=== PATIENT | female | born 1950 | race Caucasian/White ===

== ENCOUNTER 2023-12-13 09:53 | Day surgery (SDC) | payer MEDICARE, OTHER, SELFPAY ==
[2023-12-06 10:48] VITALS: BMI 26.6
[2023-12-13] VITALS (13 sets, daily range): BP systolic 116–174; BP diastolic 60–117; BMI 26.3
[2023-12-13 13:17] LABS: ACT-LR - POC 310 Seconds (116-155)
[2023-12-13 13:43] LABS: ACT-LR - POC 353 Seconds (116-155)
--- NOTE | 2023-12-13 15:21 | ITS.CL.ABL ---
[employer]er - Ablation
Ablation
Procedure Report:
ELECTROPHYSIOLOGY ABLATION STUDY
�
DATE:: December 13, 2023�����������������������������REFERRING: Dr. Hill
�
INDICATION: Persistent atrial flutter which is atypical
�
HISTORY: See H and P.��Prior history notable for pulmonary vein isolation and CTI flutter ablation. Flutter wave is positive into 3F in the precordium
�
ANTIARRHYTHMIC DRUG: No current antiarrhythmic drug therapy
�
PRE-PROCEDURE DOTTY: No atrial thrombus
�
PRESENTING RHYTHM: Atrial flutter which is atypical and as below determined to be left atrial posterior wall flutter at 230 ms
�
'TIME-OUT':��called and confirmed.
�
SEDATION/ANESTHESIA:��provided via the anesthesia department using general anesthesia (LMA).
�
INTRAVENOUS/ARTERIAL ACCESS:
Right femoral venous -9 South African
Left femoral venous -10 Fr, 6 Fr with the 10 [place] African sheath upgraded to a 10 [place] African long Brite tip sheath
Ultrasound guidance for bilateral femoral vein access was utilized by me to obtain access with demonstration of normal anatomy
CHADS-VASC Score:
[id number] suture was utilized
HAS-Bled Score
�
PROCEDURE:
1.��A decapolar CS catheter was placed within the CS for mapping and pacing.��This was also used as the reference catheter for the 3-D map. A multipolar grid catheter was brought up to the right atrium demonstrating activation mapping consistent
with breakthrough from the left atrium. Entrainment from the CTI, SVC, and lateral RA were PPI greater than 100 ms greater than tachycardia cycle length. As such we performed transseptal puncture with the [address] sheath with the RF
wire under ultrasound guidance. Once the left atrium was accessed multipolar grid catheter demonstrated with entrainment and activation mapping that the patient had left atrial posterior wall flutter. The proximal and distal coronary sinus were
out of the circuit with PPI greater than tachycardia cycle length of 80 ms and PPI equal to tachycardia cycle length from the left atrial posterior wall and roof. As below the pulmonary veins were isolated at baseline and a wide havasupai fashion. A
single flower post delivery to the posterior wall transitioned tachycardia to 320 ms and was now out from the posterior wall. The tachycardia which is tachycardia #2 320 ms was now in from the proximal and distal coronary sinus activating the
mitral annulus in a counterclockwise fashion. On the second lesion delivered in the mitral isthmus the tachycardia terminated to sinus rhythm. 100 mics of nitroglycerin were given in the left atrial sheath prior to delivery on the mitral isthmus.
The remainder of the posterior wall was isolated and additional lesions were given on the mitral isthmus. A total of 52 lesions were given to the posterior wall mitral isthmus with lesions in the basket and all of post given to the left pulmonary
veins as an anchor. The multipolar grid catheter then determined entrance and exit block in all 4 pulmonary veins and the left atrial posterior wall. There was also initial block across the mitral isthmus at 140 ms but the mitral line reconnected
after approximately 5 minutes. Additional lesions were then given in the mid isthmus between the left inferior pulmonary vein and the mitral annulus which brought about persistent bidirectional block with wide split doubles 145 ms time across the
isthmus. We were able to interrogate electrograms in the left atrial appendage did demonstrate that there was not electrical isolation of the left atrial appendage.
2. The intracardiac ultrasound catheter was positioned in the RA to identify the FO for targeting of transseptal puncture, assist��in identification of the pulmonary vein ostia, monitoring pre and post ablation pulmonary vein flow velocities,
monitoring for 'bubble' formation during RF application as a sign of thermal injury,��and to monitor for pericardial effusion during mapping and ablation procedure.���Left atrial size, LV ejection fraction, and pulmonary vein flows were monitored
pre and post ablation procedure. The other valves were inspected and found to be free of significant regurgitation or stenosis.
�
3.��Half of the calculated heparin bolus was administered prior to the first transeptal puncture.��Transseptal puncture was performed to diagnose RA and LA pressure so that safety of LA mapping and ablation could be further assessed, and to access
the left atrium and pulmonary veins for mapping and ablation.��This entailed advancing an 18 [place] sheath and RF wire apparatus and withdrawing both (monitoring intracardiac ultrasound, fluoroscopy and tip pressure) with the tip oriented toward the
atrial septum.��The fossa ovalis was engaged (indicated by sudden displacement of the sheath tip as well as tenting of the fossa seen on intracardiac ultrasound).��Left atrial access required a pass with the Brock[place]rough needle extended.��Left
atrial catheter position was confirmed by pressure monitoring (RA mean pressure 8 mm Hg and LA mean pressure 14 mm Hg), LA saturation (99%),��as well as fluoroscopy.��The sheath was advanced over the dilator and positioned in the left atrium.��This
procedure was repeated for the Agilis sheath.��The remainder of the calculated heparin bolus was administered and heparin was
infused to maintain ACT at 300 -350 seconds throughout the case.
�
4.��RA pacing was performed via the proximal decapolar poles and LA pacing was performed via the distal decapolar poles.
�
5. A quadrapolar catheter was first positioned at the His position for His Bundle recording which was tagged via the 3-D Navex sytem, and then passed to the RVA for RV pacing and recording.
�
6. The multipolar catheter and the PFA catheter were placed in each of the LIPV, LSPV, RSPV and the RIPV.��
�
7.��Next, a 3-D map was created using Navex.���A 3-D reconstructed CT image was compared to the 3-D Navex map to assist in anatomic interpretation, mapping and ablation.��The CT image and the NavX image were fused.
�
8. 52 lesions were given to the antra of the left pulmonary veins, the left atrial posterior wall, and the mitral isthmus from the mitral annulus up towards the left inferior pulmonary vein and the lateral aspect. 100 mcg of nitroglycerin were
given through the left atrial sheath preablation in the mitral isthmus. As above the atrial flutter transition from posterior wall flutter to mitral flutter with the first lesion in flat repose in the posterior wall and terminated with flutter post
at the mitral isthmus on the second delivery lesion. Additional lesions were given to bring about block and left posterior wall from the roof down to the floor and there was bidirectional block persistently across the mitral isthmus at 145 ms.
Intracardiac ultrasound was utilized for direct facilitation of contact and no grade 3 bubble formations were seen.
�
9. Normal sinus node and AV sara function were noted.
�
TOTAL FLOURO TIME: 21 minutes 163 mGy
�
TOTAL RF DURATION: 0 minutes
�
REVERSAL OF HEPARIN: 35 mg of protamine, slow IV administration
�
COMPLICATIONS:
None
Intracardiac US shows no pericardial effusion post ablation.
�
SUMMARY:��
Complex left atrial mapping and ablation.
Clinical left atrial posterior wall flutter to 30 ms transition to 320 ms counterclockwise mitral flutter which terminated with ablation with the PFA catheter. Isolation of left atrial posterior wall and the mitral isthmus bidirectional block as
above. The pulmonary veins were isolated at baseline but lesions were given to the antral region of the pulmonary veins. The chronic CTI flutter ablation had persistent bidirectional block.
�
RECOMMENDATIONS:
1. Admit to monitored bed.��
2. Resume anticoagulation
3.��Ambulate out of bed 4 hours
4.��Dofetilide loading if she has any clinical recurrences
�
Copy to: Dr. Hill
�
[2023-12-13] MEDS: ANESTHETIC LOZENGE 1 LOZENGE PO (18:05)
--- NOTE | 2023-12-13 18:44 | PTCARENOTE ---
Rec'd Pt A,A+O, bilat femoral dsgs D+I, palp DP pulses. denies pain.
[2023-12-13] MEDS: LIPITOR 20 MG PO (18:55)
[2023-12-13] MEDS: TOPROL XL 25 MG PO (20:01)
[2023-12-13] MEDS: ELIQUIS 5 MG PO (20:01)
[2023-12-13] MEDS: ALPHAGAN 0.2% EYE DROPS 1 DROP BOTH EYES (20:02)
[2023-12-13] MEDS: XALATAN OPHTHALMIC SOLUTION 1 DROP BOTH EYES (21:57)
[2023-12-13] MEDS: LEXAPRO 10 MG PO (21:57)
[2023-12-14 04:23] VITALS: BP 145/73
[2023-12-14 05:29] LABS: Hematocrit 35.7 % (37.0-47.0); Hemoglobin 12.1 g/dL (12.0-16.0); Mean Corp Hgb Conc. 33.9 g/dL (33.0-37.0); Mean Corpuscular Hgb 31.6 pg (27.0-31.0); Mean Corpuscular Volume 93.2 fL (81.0-99.0); Mean Platelet Volume 10.3 fL (7.4-10.4); Platelet Count 279 10^3/uL (130-400); Red Blood Cell Count 3.83 10^6/uL (4.20-5.40); White Blood Cell Count 11.5 10^3/uL (4.8-10.8)
[2023-12-14 05:42] LABS: Blood Urea Nitrogen 21 mg/dl (7-17); Calcium 9.4 mg/dl (8.4-10.2); Carbon Dioxide 22 mmol/L (22-30); Chloride 106 mmol/L (98-107); Estimated Creatinine Clearance 59 ml/min; Glucose 127 mg/dl (70-99); Magnesium 2.2 mg/dl (1.6-2.3); Potassium 5.2 mmol/L (3.5-5.1); Sodium 139 mmol/L (135-145); eGFR > 60.00
[2023-12-14 07:28] VITALS: BP 154/90
--- NOTE | 2023-12-14 07:43 | PTCARENOTE ---
Patient received from previous shift resting in bed, AAO X 3, denies pain. NSR via cm, SaO2 @ 100% on RA. B/L groin sites cdi, no ecchymosis or hematoma noted, distal pulses palp. Assisted oob to bathroom, large void, am care performed
independently. Settled to chair, breakfast ordered. Patient updated to plan of care for the day, in agreement. See work list for full assessment and interventions performed.
[2023-12-14] MEDS: ELIQUIS 5 MG PO (08:22)
[2023-12-14] MEDS: ALPHAGAN 0.2% EYE DROPS 1 DROP BOTH EYES (08:23)
[2023-12-14] MEDS: TOPROL XL 25 MG PO (08:23)
[2023-12-14] MEDS: FLUAD (65 yr+) 2024-2025 FORMULA 0.5 ML IM (10:51)
[2023-12-14 10:53] VITALS: BP 136/63
--- NOTE | 2023-12-14 11:19 | W.PN.CARDCBS ---
Today's Communication / Plan
-
decrease metoprolol to 25mg BID
home today
Impression / Plan
-
PCP: Luna Early MD
CDY: Yogi Hill MD
73 y/o, PMH sig for AFib/Flutter with prior PVI/CTI RFA in 2010 and again in 2019. PResents with recurrent symptomatic AFlutter.
[id number], maintained on eliquis.
IMPRESSION:
AFib/Flutter, prior PVI/CTI RFA (2010, 2018)
Recurrent symptomatic AFlutter
s/p LAPW/mitral flutter PFA w/antral pulm vein PFA, 12/13/23
HTN
HLD
PAUL
PLAN:
Tele- NSR
Groin sites stable
OOB ambulating
resume eliquis
decrease metoprolol to 25mg bid
followup w/Dr. Hill as scheduled
homd today
Complex left atrial mapping and ablation.
Clinical left atrial posterior wall flutter to 30 ms transition to 320 ms counterclockwise mitral flutter which terminated with ablation with the PFA catheter. Isolation of left atrial posterior wall and the mitral isthmus bidirectional block as
above. The pulmonary veins were isolated at baseline but lesions were given to the antral region of the pulmonary veins. The chronic CTI flutter ablation had persistent bidirectional block.
Progress Note - Journeyman Carpenter
Subjective
Date of Service: December 14, 2023
Denies cp/palps/dyspnea
oob ambulating
groin sites without ht/bleeding
Objective
Labs:
12/14/23 04:42
12/14/23 04:42
Labs
Hgb 12.1 g/dL (12.0-16.0) 12/14/23 04:42
Hct 35.7 % (37.0-47.0) L 12/14/23 04:42
Plt Count 279 10^3/uL (130-400) 12/14/23 04:42
Sodium 139 mmol/L (135-145) 12/14/23 04:42
Potassium 5.2 mmol/L (3.5-5.1) H 12/14/23 04:42
BUN 21 mg/dl (7-17) H 12/14/23 04:42
Creatinine 0.8 mg/dL (0.6-1.0) 12/14/23 04:42
Glucose 127 mg/dl (70-99) H 12/14/23 04:42
Vital Signs and I&O:
Vital Signs
Temp Pulse Resp BP Pulse Ox
98.2 F 65 17 136/63 100
12/14/23 11:00 12/14/23 11:00 12/14/23 11:00 12/14/23 10:53 12/14/23 11:00
Vital Signs
Temp Pulse Resp BP Pulse Ox
98.2 F 65 17 136/63 100
12/14/23 11:00 12/14/23 11:00 12/14/23 11:00 12/14/23 10:53 12/14/23 11:00
Intake & Output
12/12/23 12/13/23 12/14/23 12/15/23
06:59 06:59 06:59 06:59
Intake Total 2110 / 2110 250 / 250
Output Total 600 / 600
Balance 1510 / 1510 250 / 250
Physical Exam
Physical Exam
AAOx3, MAEE 5/5
RRR S1 S2 no murmurs
CTA bilat, non labored
bilat groin sites with no ht/bleeding, non tender
bilat extremities w/palpable distal pulses, no edema
--- NOTE | 2023-12-14 11:33 | PTCARENOTE ---
Discharge instructions thoroughly reviewed w/patient and spouse, all questions answered. PIV removed. Patient and all belongings transported to waiting vehicle for d/c home to private residence.
--- NOTE | 2023-12-14 11:45 | W.DS.TRANS ---
DC Summary - Clinical Education Manager
-
Discharge Instructions:
Discharge Diagnosis/Procedures Atrial flutter post ablation
Diet Low Cholesterol
Driving Restrictions No driving for 24 hours
Instructions:
Stand-Alone Forms: DC Instructions- Cath/EP Lab
Changes to Home Medications: Yes
Discharge Medications:
DC Medications w/original date entered in [facility]
apixaban 5 mg tablet (Eliquis) 5 mg PO BID 02/01/19
atorvastatin 20 mg tablet 20 mg PO QPM 02/01/19
bimatoprost 0.01 % eye drops (Lumigan) 1 drp BOTH EYES HS 02/01/19
biotin 1,000 mcg chewable tablet 5,000 mcg PO DAILY 02/01/19
brimonidine 0.2 % eye drops 1 drp BOTH EYES BID 02/01/19
cholecalciferol (vitamin D3) 25 mcg (1,000 unit) tablet 1,000 units PO DAILY 02/01/19
coenzyme N52-[id number] E 100 mg-5 unit capsule (Co Q-10 (with Vit E)) 1 ea PO DAILY 02/01/19
dorzolamide (PF) 2 % (PF) eye drops 1 ml BOTH EYES BID 02/01/19
cranberry 1 cap PO DAILY 11/30/23
metoprolol succinate 25 mg tablet,extended release 24 hr 25 mg PO QPM 11/30/23
calcium 600 mg capsule 600 mg PO BID 12/13/23
escitalopram oxalate 10 mg tablet 10 mg PO HS 12/13/23
famotidine 20 mg tablet (Pepcid) 20 mg PO DAILY 12/13/23
omega-3 fatty acids 565 mg PO DAILY 12/13/23
metoprolol succinate 25 mg tablet,extended release 24 hr 25 mg PO BID #0 tabs 12/14/23
Home Medication Changes
DOSE DECREASE: metoprolol xl
Pending Results: No
--- NOTE | 2023-12-14 12:03 | CM ---
CM following for DC planning needs.
Met w/ patient at bedside as she was preparing for DC.
Prior to admission, patient resides w/ spouse in a private home. She is functionally indep. w/ ADLs, mobility.
She has no DC needs.
Plan is for home, no needs.
== END 2023-12-14 11:38 | disposition home or self-care (01) ==
LOC: CATH 09:53
PROVIDERS: Nurse Practitioner Adult Health; ATTENDING PHYSICIAN Internal Medicine Cardiovascular Disease; FAMILY PHYSICIAN Family Medicine; OTHER PHYSICIAN Internal Medicine Cardiovascular Disease
DX: I48.4 Atypical atrial flutter (principal); I48.0 Paroxysmal atrial fibrillation; I10 Essential (primary) hypertension; E78.5 Hyperlipidemia, unspecified; G47.33 Obstructive sleep apnea (adult) (pediatric); M19.90 Unspecified osteoarthritis, unspecified site; H40.9 Unspecified glaucoma; R00.1 Bradycardia, unspecified; Z88.0 Allergy status to penicillin; Z88.1 Allergy status to other antibiotic agents; Z79.01 Long term (current) use of anticoagulants; Z79.899 Other long term (current) drug therapy
CPT/HCPCS: 93662; C1892; C1769; C1730; C1894; C1732; 80048; 83735; 85027; 85347; 90662; 93005; 93462; 93653; 93655; C1733; C1766; G0008; Q9967

== ENCOUNTER 2023-12-16 08:00 | Inpatient (IN) | payer MEDICARE, OTHER, SELFPAY ==
[2023-12-15] VITALS (9 sets, daily range): BP systolic 121–188; BP diastolic 58–93; BMI 26.6
--- NOTE | 2023-12-15 10:54 | ED.GENMED ---
History of Present Illness
General
Chief Complaint: Chest Pain
Source: patient and spouse
Exam Limitations: none
Time Seen by Provider: 12/15/23 10:38
Nursing documentation reviewed up to this point in time: agreed with
History of Present Illness
History of Present Illness:
73-year-old female with past ministry of previous A-fib status post ablation 2 days ago, hypertension hyperlipidemia presenting to the emergency department with a central chest pain with radiation to her arms shoulders and neck starting this morning
over the past hour has somewhat improved over the past hour. Denies shortness of breath diaphoresis nausea vomiting. Seems to be slightly worse with movement and positioning
Past History
Past History
ED Past Medical History: Arrthythmia (afib), HTN, Hypercholesterolemia and Other (glaucoma)
ED Past Surgical History: Cardiac (cardiac ablation x 2 (7yrs ago, 2 weeks ago))
Review of Systems
Review of Systems
Allergies reviewed?: Yes
All Other Systems: ROS reviewed and negative except as documented in HPI and ROS
Phy Exam
Physical Exam
Physical Exam:
GENERAL: Alert , in no apparent distress
EYE: pupils equal and reactive
NECK: Supple, no significant adenopathy.
ENT: o/p clr, mmm.
CARDIAC: Regular rate and rhythm .
LUNGS: Clear breath sounds bilaterally, no acute respiratory distress, no wheezes/rales/rhonchi
ABDOMEN: Soft, without focal tenderness, no r/g, no cvat
NEUROLOGICAL: Alert and oriented, no focal neuro deficits
SKIN: Warm and dry, skin intact.
MUSCULOSKELETAL: No edema, well perfused.
PSYCH: Normal and appropriate interaction.
Scores
Heart Score for Chest Pain Patients
STEMI patient?: No
History: Slightly or Non-Suspicious
ECG: Nonspecific Repolarization
Age: >/= 65 years
Risk Factors: >/= 3 Risk Factors or History of CAD
Troponin: </= Normal Limit
Heart Score for Chest Pain Patients: 5
Heart Score Risk: 20.3% MACE over next 6 weeks
Course
Orders/Labs/Results
Orders:
Orders
12/15/23 09:06
EKG [Electrocardiogram (*1)] Urgent
Reason for Study: Chest Pain
12/15/23 09:07
EKG- Treatment ONCE
12/15/23 10:51
CR Chest - 2 Views Urgent
Comment:
Reason For Exam: cp
12/15/23 11:37
Complete Blood Count/With Diff Urgent
Comprehensive Metabolic Panel Urgent
Magnesium Urgent
NT-proBNP Urgent
Troponin I Urgent
12/15/23 11:39
Echo 2D MMode Color/Doppler Urgent
Reason for Study: CP after cardiac ablation 2 days ago
Cardiology Consult: Pedro Leon
12/15/23 14:26
EKG [Electrocardiogram (*1)] Urgent
Reason for Study: Chest Pain
EKG- Treatment ONCE
12/15/23 14:40
Troponin I Urgent
12/15/23 14:42
Acetaminophen [Tylenol] 1,000 mg PO NOW STA
12/15/23 16:08
Aspirin 325 mg PO NOW STA
Abnormal Lab Results
12/15/23 12/15/23
11:37 14:40
WBC 15.0 H 10^3/uL
(4.8-10.8)
RBC 3.93 L 10^6/uL
(4.20-5.40)
Hct 36.0 L %
(37.0-47.0)
Abs Immat Gran (auto) 0.1 H 10^3/uL
(0-0.05)
Absolute Neuts (auto) 10.8 H 10^3/uL
(1.4-6.5)
Absolute Monos (auto) 1.4 H 10^3/uL
(0.1-0.6)
Lymphocytes % 15.4 L %
(20.5-51.1)
Monocytes % 9.4 H %
(1.7-9.3)
BUN 20 H mg/dl
(7-17)
Glucose 103 H mg/dl
(70-99)
AST 71 H U/L
(14-36)
ALT 54 H U/L
(0-35)
Troponin I 1.740 H* ng/ml 3.090 H* D ng/ml
12/15/23 11:37
12/15/23 11:37
Vital Signs
Initial and Last Documented VS:
Initial Vital Signs
Temp Pulse Resp BP Pulse Ox
98.4 F 65 16 160/84 98
12/15/23 09:15 12/15/23 09:15 12/15/23 09:15 12/15/23 09:15 12/15/23 09:15
Last Documented Vital Signs
Temp Pulse Resp BP Pulse Ox
98.4 F 77 20 174/77 98
12/15/23 09:15 12/15/23 15:00 12/15/23 15:00 12/15/23 15:00 12/15/23 14:45
MDM/Problems Addressed
MDM/Problems Addressed:
73-year-old female presenting to the emergency department today with concerns of chest discomfort. Patient did have an ablation for A-fib 2 days ago. On arrival vital signs showing elevated blood pressure otherwise vital signs are normal. Patient
with normal heart sounds and clear lungs. No reproducible pain to palpation no rashes. EKG unchanged. Cardiology was consulted about the case concerning her recent procedure 2 days ago and ablation. Initial troponin elevated 1.7 elevated. Echo
was ordered for further assessment to ensure no effusion or additional abnormality. Troponin was repeated and increased further to 3.090 after 3-hour Trop. Patient has been somewhat asymptomatic throughout ER stay and asymptomatic at reassessment.
Blood pressure remaining somewhat elevated. Patient seen by cardiology recommended admission considering an elevated troponin. Stable during ER stay.
*Critical Care Note
Total Time (30-74mins, 75-104mins- exclusive of procedures): Not Applicable
ED Attending Note
-
Portions of this chart may have been created with voice recognition software.� Occasional wrong word or��sound alike� substitutions may have occurred due to the inherent limitations of voice recognition software.
Discharge Plan
Departure
Patient Disposition: Admit
Date of Disposition: 12/15/23
Time of Disposition: 16:10
Admit to: Telemetry
Admit to doctor: Carolyn
Presentation/result/management discussed w/ accepting MD/DO: Cardiology
Patient with high blood pressure during this ER visit?: No
Condition: Fair
Covid-19: Not Applicable
Discharge Problem:
Chest pain, Elevated troponin
Prescriptions:
No Action
atorvastatin 20 MG tablet
20 mg PO QPM
cholecalciferol (vitamin D3) 1,000 UNITS tablet
1,000 units PO DAILY
coenzyme M75-xetitwj E [Co Q-10 (with Vit E)] 1 EACH capsule
1 ea PO DAILY
Eliquis 5 MG tablet
5 mg PO BID
biotin 1,000 MCG tablet,chewable
5,000 mcg PO DAILY
cranberry
1 cap PO DAILY
famotidine [Pepcid] 20 mg Tablet
20 mg PO DAILY
escitalopram oxalate 10 mg Tablet
10 mg PO HS
calcium carbonate [Calcium 600] 600 mg calcium (1,500 mg) Tablet
600 mg PO BID
dorzolamide-timolol 22.3-6.8 mg/mL drops
1 drp BOTH EYES BID
brimonidine 0.1 % drops
1 drp BOTH EYES BID
Lumigan 0.01 % drops
1 drp BOTH EYES HS
Dyer-3 Fish Oil 300-1,000 mg Capsule
1 cap PO DAILY
metoprolol succinate 25 MG tablet extended release 24 hr
25 mg PO BID
Referrals:
Luna Early MD [Family Provider] -
Interventions
Interventions:
*Risk Screen - Suicide Last Done: 12/15/23 09:15
*General Assessment Last Done: 12/15/23 12:04
*Neglect/Abuse Screening Last Done: 12/15/23 09:15
ED- Fall Risk Assessment Last Done: 12/15/23 12:04
*ED COVID-19 Vaccine History Last Done: 12/15/23 12:04
ED- Cardiac Assessment Last Done: 12/15/23 12:04
ED- Pulmonary Assessment Last Done: 12/15/23 12:04
Discharge Date and Time
Print Language: PANAMANIAN
[2023-12-15 11:48] LABS: % Basophils 0.5 % (0-2); % Immature Granulocytes 0.3 % (0-0.5); % Lymphocytes 15.4 % (20.5-51.1); % Monocytes 9.4 % (1.7-9.3); % Neutrophils 72.4 % (42.2-75.2); Absolute Basophils 0.1 10^3/uL (0-0.2); Absolute Eosinophils 0.3 10^3/uL (0-0.7); Absolute Immature Granulocytes 0.1 10^3/uL (0-0.05); Absolute Lymphocytes 2.3 10^3/uL (1.2-3.4); Absolute Monocytes 1.4 10^3/uL (0.1-0.6); Absolute Neutrophils 10.8 10^3/uL (1.4-6.5); Mean Corp Hgb Conc. 33.3 g/dL (33.0-37.0); Mean Corpuscular Hgb 30.5 pg (27.0-31.0); Mean Corpuscular Volume 91.6 fL (81.0-99.0); Mean Platelet Volume 9.9 fL (7.4-10.4); Nucleated Red Blood Cells % 0 %; Platelet Count 271 10^3/uL (130-400); Red Blood Cell Count 3.93 10^6/uL (4.20-5.40); Red Cell Dist. Width 13.2 % (11.5-14.5)
[2023-12-15 11:58] LABS: ALT (SGPT) 54 U/L (0-35); AST (SGOT) 71 U/L (14-36); Albumin 4.4 g/dl (3.5-5.0); Alkaline Phosphatase 56 U/L (38-126); Blood Urea Nitrogen 20 mg/dl (7-17); Calcium 9.3 mg/dl (8.4-10.2); Carbon Dioxide 28 mmol/L (22-30); Chloride 104 mmol/L (98-107); Glucose 103 mg/dl (70-99); Magnesium 2.1 mg/dl (1.6-2.3); Potassium 4.2 mmol/L (3.5-5.1); Sodium 143 mmol/L (135-145); Total Protein 6.5 g/dl (6.3-8.2); eGFR 58.75
[2023-12-15 12:13] LABS: NT-proBNP 1270 pg/ml
[2023-12-15] MEDS: TYLENOL 1000 MG PO (14:48)
[2023-12-15] MEDS: ASPIRIN 325 MG PO (16:16)
--- NOTE | 2023-12-15 16:16 | CON.CAR ---
Addendum entered and electronically signed by Christy Palmer MD 12/15/23 17:01:
I saw and examined the patient.
The Business Development Sales Executive's note was reviewed and I agree with the note.
Comment: Briefly, patient is a 73-year-old female with past medical history of hypertension, hyperlipidemia, obstructive sleep apnea, paroxysmal atrial fibrillation/flutter status post PVI/CTI through RFA in 2010, 2018 and most recently status post
LA PW/mitral flutter PFA with antral pulmonary vein PFA on December 13, 2023, discharged on December 14, 2023 who presents back to the emergency department after an episode of dull substernal chest discomfort. She was sitting down while drinking
coffee when she developed sudden onset of her chest discomfort radiating to her neck/jaw, back as well as bilateral arms. She did not have any associated shortness of breath, lightheadedness, palpitations or any other symptoms to report. She did
get a flu shot yesterday and has experienced generalized fatigue and feels sore all over. Her symptoms lasted about 30 to 45 minutes and resolved without any interventions. There are no positional associations in terms of her chest discomfort. No
pleuritic nature to her chest discomfort. Her initial troponin was 1.7 with a repeat troponin up to 3.0. ECG showed normal sinus rhythm with nonspecific ST-T wave changes which is unchanged from time of discharge. She also describes some chills
without any fevers.
Vital signs and lab work reviewed. Mildly elevated liver function studies. On exam patient appears to be extremely anxious, is tearful, is at bedside, in no acute distress otherwise, alert and oriented x 3, normal S1 and S2, no murmurs,
rubs or gallops, abdomen is soft, nontender, nondistended with active bowel sounds, lungs are clear to auscultation bilaterally, warm extremities without significant edema.
Echocardiogram from today shows normal biventricular function without wall motion abnormalities and no pericardial effusion. Moderate to severe TR along with pulmonary hypertension is noted.
Plan:
1. Her symptoms are not typical for ACS or postprocedural inflammation like pericarditis/pleuritis with recent flu shot however I do not have a clear explanation on why her troponins are uptrending. We will plan on continued trending her troponins
and EKGs while watching on telemetry at least overnight.
2. We did review with her that her echocardiogram is showing normal left ventricular systolic function with no wall motion abnormalities.
3. If her troponins continue to trend up without a clear explanation in the setting of multiple cardiovascular risk factors and the fact that she is 73, we would likely discuss a heart catheterization tomorrow. If her troponins plateau and
downtrend, I think it would be reasonable to pursue follow-up as an outpatient given recent ablation 2 days ago.
4. We will hold her Eliquis for now and placed on an IV heparin drip given recently she was converted from atrial flutter to sinus rhythm. We will make her n.p.o. after midnight until we have a clear grasp on troponin trends.
5. I did encourage her to let us know if she has any recurrent symptoms.
Discussed in detail with patient and at bedside.
Christy Palmer MD, [facility], [facility]
Original Note:
Consultation
Consultation Request
Date/Time Consultation Performed: 12/15/23
Requesting Provider: Seng Barrios PA-C
Performing Provider: Melissa Das PA-C for Dr. Palmer
Reason for Consultation: CP
Medical History
-
Chief Complaint: CP
History of Present Illness:
Patient is a 73 yo F with PMH of HTN, HLD, PAUL, parox afib/flutter s/p PVI/CTI RFA 2010, 2018 and most recently s/p LAPW/mitral flutter PFA with antral pulm vein PFA 12/13/23, discharged 12/14/23 who presents back to [facility] due to episode of chest
discomfort. She reports this morning while sitting drinking her coffee developed upper central chest discomfort with radiation to neck/jaw, back, and down B/L arms. She reports she had not had pain like this before. She reported some soreness in her
back post ablation particularly with taking a deep breath but this was significantly different than that. Denies N/V, diaphoresis, SOB, lightheadedness, LE edema, orthopnea, positional changes in pain. Does report some chills however states she got
a flu shot yesterday. She reports the pain went away on its own after ~30-45 minutes. No aggravating or alleviating factors. Initial trop 1.7, however repeat 3.0. EKG SR with NSSTS. Cardiology consulted for evaluation.
PMH:
AFib/Flutter, prior PVI/CTI RFA (2010, 2018)
Recurrent symptomatic atypical AFlutter
s/p LAPW/mitral flutter PFA w/antral pulm vein PFA, 12/13/23
HTN
HLD
PAUL
Atypical breast biopsy, being monitored
Past Medical History
Past Medical History: Other (in HPI)
Social History
Tobacco: Non-Smoker
Alcohol: None
Personal:
Living: With Family
Allergies / Home Medications
Allergy/AdvReac Type Severity Reaction Status Date / Time
chlorhexidine Allergy Unknown Verified 12/15/23 09:16
nitrofurantoin Allergy Elevated Verified 12/15/23 09:16
[From Macrobid] LFTs
Penicillins Allergy Hives Verified 12/15/23 09:16
�Medication �Instructions �Recorded �Confirmed �Type
apixaban 5 mg tablet (Eliquis) 5 mg PO BID Blood Clot Prevent/AFib 02/01/19 12/15/23 History
atorvastatin 20 mg tablet 20 mg PO QPM High Cholesterol 02/01/19 12/15/23 History
biotin 1,000 mcg chewable tablet 5,000 mcg PO DAILY Supplement 02/01/19 12/15/23 History
cholecalciferol (vitamin D3) 25 1,000 units PO DAILY Supplement 02/01/19 12/15/23 History
mcg (1,000 unit) tablet
coenzyme Q85-vedroco E 100 mg-5 1 ea PO DAILY Supplement 02/01/19 12/15/23 History
unit capsule (Co Q-10 (with Vit E))
cranberry 1 cap PO DAILY Supplement 11/30/23 12/15/23 History
escitalopram oxalate 10 mg tablet 10 mg PO HS depression/anxiety 12/13/23 12/15/23 History
famotidine 20 mg tablet (Pepcid) 20 mg PO DAILY Gastrointestinal 12/13/23 12/15/23 History
Issue
bimatoprost 0.01 % eye drops 1 drp BOTH EYES HS Eye Condition 12/15/23 12/15/23 History
(Lumigan)
brimonidine 0.1 % eye drops 1 drp BOTH EYES BID Eye Condition 12/15/23 12/15/23 History
calcium carbonate (Calcium 600) 600 mg PO BID Supplement 12/15/23 12/15/23 History
dorzolamide 22.3 mg-timolol 6.8 1 drp BOTH EYES BID Eye Condition 12/15/23 12/15/23 History
mg/mL eye drops
metoprolol succinate 25 mg 25 mg PO BID Heart 12/15/23 12/15/23 History
tablet,extended release 24 hr Disease/Condition
omega-3s 300 kh-ujo-fpy-other 1 cap PO DAILY Supplement 12/15/23 12/15/23 History
xliub0u-hfxy oil 1,000 mg capsule
([place]-3 Fish Oil)
Review of Systems
-
History Source: Patient and Family
All other systems: Negative unless noted
Physical Exam
Vital Signs
Temp Pulse Resp BP Pulse Ox
98.4 F 77 20 174/77 98
12/15/23 09:15 12/15/23 15:00 12/15/23 15:00 12/15/23 15:00 12/15/23 14:45
Lab Results
12/15/23 11:37
12/15/23 11:37
Troponin I 3.090 ng/ml H* D 12/15/23 14:40
Tdb-R-Tnsychapzkk Pept 1270 pg/ml 12/15/23 11:37
Physical Exam
General: No Apparent Distress and Comfortable
HEENT: Normocephalic, Anicteric and Moist Mucous Membranes
Respiratory: Clear and Non Labored Respirations
Cardiac: S1/S2 and Regular Rhythm
GI: Soft, Non Tender, Non Distended and Normal Bowel Sounds
Musculoskeletal: No Clubbing, No Cyanosis and No Edema
Skin: Warm and Dry
Neuro: AO x 3
Impression / Plan
-
Primary Commercial Artist: Dr. Carina Dave of [facility]
Primary EP: Dr. Murillo
Assessment:
CP
Elevated troponin
Leukocytosis
mild LFT elevation
Recurrent symptomatic atypical AFlutter s/p LAPW/mitral flutter PFA w/antral pulm vein PFA 12/13/23
AFib/Flutter, with prior PVI/CTI RFA 2018
HTN
HLD
PAUL
Atypical breast biopsy, being monitored
ECHO 12/15/23: EF 55 to 60%, mild concentric LVH, moderate to severe TR, PAP 60 to 65 mmHg, normal pericardium without effusion
Plan:
-Patient presents to ER for evaluation of episode of chest discomfort in setting of recent pulsed field ablation 12/13/23
-troponin uptrending, will admit for observation and trend to peak
-EKG fortunately SR with NSSTS
-CXR without acute abnormalities
-echo with results as above
-pending troponin trend, may need to consider inpatient ischemic eval. NPO after midnight. will hold eliquis and transition to IV heparin for now
-d/w patient and at bedside
-d/w ER PA. d/w EP
Data Reviewed
-
EKG: Tracing Personally Visualized and interpreted
Radiology: Report Reviewed by me
Medical Tests (Nuc Med, Echo etc): Report Reviewed by me
Labs: Labs Reviewed by me
Old Records: Reviewed
--- NOTE | 2023-12-15 18:10 | PTCARENOTE ---
Rec'd Pt A,A+Ox3, denies pain. Pt in SR, bilat femoral sites SURGICAL ATTENDANT,C+D, sl ecchymotic.
[2023-12-15] MEDS: LIPITOR 20 MG PO (18:26)
[2023-12-15 20:01] LABS: APTT 33.2 Sec (23.4-35.0)
[2023-12-15] MEDS: COSOPT EYE DROPS 1 DROP BOTH EYES (20:36)
[2023-12-15] MEDS: TOPROL XL 25 MG PO (20:37)
[2023-12-15] MEDS: OSCAL CAL 500 500 MG PO (20:37)
[2023-12-15] MEDS: HEPARIN 25000 UNITS/250 ML IV (20:38)
[2023-12-15] MEDS: ALPHAGAN P 0.1% EYE DROPS 1 DROP BOTH EYES (20:50)
[2023-12-15] MEDS: LEXAPRO 10 MG PO (23:02)
[2023-12-15] MEDS: XALATAN OPHTHALMIC SOLUTION 1 DROP BOTH EYES (23:02)
[2023-12-16] VITALS (10 sets, daily range): BP systolic 139–164; BP diastolic 69–84; BMI 26.5
--- NOTE | 2023-12-16 02:59 | PTCARENOTE ---
Pt NSR on monitor. VVS AAOx3. Denies chest /back pain or SOB. Ambulates in the room with x1 assist.
[2023-12-16 03:01] LABS: Hematocrit 32.4 % (37.0-47.0); Hemoglobin 10.9 g/dL (12.0-16.0); Mean Corp Hgb Conc. 33.6 g/dL (33.0-37.0); Mean Corpuscular Hgb 30.5 pg (27.0-31.0); Mean Corpuscular Volume 90.8 fL (81.0-99.0); Mean Platelet Volume 10.2 fL (7.4-10.4); Platelet Count 235 10^3/uL (130-400); Red Blood Cell Count 3.57 10^6/uL (4.20-5.40); Red Cell Dist. Width 13.2 % (11.5-14.5); White Blood Cell Count 10.4 10^3/uL (4.8-10.8)
[2023-12-16 03:18] LABS: ALT (SGPT) 47 U/L (0-35); AST (SGOT) 67 U/L (14-36); Albumin 3.8 g/dl (3.5-5.0); Alkaline Phosphatase 55 U/L (38-126); Blood Urea Nitrogen 19 mg/dl (7-17); Calcium 9.5 mg/dl (8.4-10.2); Carbon Dioxide 27 mmol/L (22-30); Chloride 105 mmol/L (98-107); Estimated Creatinine Clearance 59 ml/min; Glucose 103 mg/dl (70-99); HDL Cholesterol 53 mg/dl; LDL Cholesterol, Calculated 49 mg/dl; Potassium 4.1 mmol/L (3.5-5.1); Sodium 141 mmol/L (135-145); Total Cholesterol 125 mg/dl (50-199); Total Protein 5.9 g/dl (6.3-8.2); Triglyceride 118 mg/dl (10-149); Very Low Density Lipoprotein 23 mg/dl (0-30); eGFR > 60.00
[2023-12-16 04:37] LABS: APTT 121.5 Sec (23.4-35.0)
--- NOTE | 2023-12-16 07:55 | PTCARENOTE ---
Assumed care of pt from prev nsg shift; Pt AAOx3 & visibly anxious this AM re: plan of care. Pt w/no c/o CP or SOB. Pt's HR 60' & BP elevated at 149/84. Pt is SR on telemetry monitoring. Plan of care discussed w/pt. Pt w/call vasques within reach & no
addtl needs at this time.
--- NOTE | 2023-12-16 09:00 | PTCARENOTE ---
Report given to Hna in the lab rn; pt given PO 81mg ASA on the way to lab rn. Pt transported in bed.
[2023-12-16] MEDS: LOW STRENGTH ASPIRIN 81 MG PO (09:07)
[2023-12-16 09:48] LABS: ACT-LR - POC 145 Seconds (116-155)
[2023-12-16 10:06] LABS: Glycohemoglobin (HgbA1c) 5.8 % (4.0-5.6)
--- NOTE | 2023-12-16 10:10 | PTCARENOTE ---
Rec'd report from Hailee in the laboratory monitor; Pt rec'd back drowsy, but easily arousable. AAOX3 w/no c/o CP or SOB post cath. Pt w/R radial band in place w/no signs or symptoms of bleeding or hematoma. Pt's VS stable w/HR in the 60's & BP 155/71. Pt
w/spouse at bedside & call vasques within reach. Plan of care ongoing.
--- NOTE | 2023-12-16 10:20 | W.PN.UPDATE ---
Update Note
Progress Note Update
Spoke with Zayda this morning and reviewed her prior history. I discussed with her that although we have a low likelihood of worry for coronary artery disease given her temporal nature of troponin elevation would be reasonable to look at her
coronary artery anatomy. She was agreeable and proceeded to left heart catheterization which demonstrated no significant coronary artery disease. She did have mild elevation in her LVEDP and will give her a short course of Lasix with early
resumption of her oral anticoagulation as she had a recent cardioversion for mitral flutter to sinus rhythm. Continue current other medications discussed with Dr. Palmer and primary team.
--- NOTE | 2023-12-16 11:23 | ITS.CL.CATH ---
[facility] - Catheterization
Cardiac Catheterization
Procedure Report:
LEFT HEART CATHETERIZATION
Date of Procedure: December 16, 2023
Referring: Christy Palmer MD, [facility], [facility]
PROCEDURES:
1. Left catheterization, coronary angiogram.
2. Ultrasound-guided access
INDICATION: Concern for NSTEMI
ACCESS: Right radial artery, 6 Telugu sheath, under ultrasound guidance
HEMODYNAMICS : (mmHg)
AO (s/d) : 183/95
LV (s/d) : 190/24
LVEDP : 32
CORONARY FINDINGS
DOMINANCE: Right
LEFT MAIN: The left main artery is a large-caliber vessel which gives rise to the left anterior descending artery and the left circumflex artery. Normal coronary artery.
LEFT ANTERIOR DESCENDING: The left anterior descending artery is a medium caliber moderately tortuous vessel which gives rise to multiple small caliber diagonal branches with minimal luminal irregularities.
CIRCUMFLEX: The left circumflex artery is a small to medium caliber vessel which gives rise to 2 major obtuse marginal branches. There is mild luminal irregularities.
RIGHT CORONARY ARTERY: The right coronary artery is a large-caliber, dominant vessel which gives rise to the right posterior descending artery and the right posterolateral system. Normal coronary artery.
SEDATION: 41 minutes of procedural sedation was utilized. An independent medical nurse was present to assist with and help manage the patient's level of consciousness and physiologic status.
RADIATION SUMMARY: Fluoro Time (min): 9.3, Dose (mGy): 282.83, DAP (Gy.cm2) : 18.9
Closure Device: Vascular band over right radial artery, 10 cc of air.
CONCLUSIONS
1. No obstructive coronary artery disease.
2. Significantly elevated LVEDP at 32 mmHg.
RECOMMENDATIONS
1. Wean radial band per protocol.
2. Continued medical therapy to optimize filling pressures and systemic hypertension.
3. Resume full anticoagulation this evening as long as no issues with right radial access site.
4. Continued management of cardiovascular risk factors.
Copy to: Merrick Murillo MD
Christy Palmer MD, [facility], [facility]
--- NOTE | 2023-12-16 11:36 | CM ---
Chart reviewed. Patient is independent of ADLS, lives with her in a [address], 1 [address], 0 DME. Plan is for the patient to return home. CM to follow
[2023-12-16] MEDS: TOPROL XL 25 MG PO (11:40)
[2023-12-16] MEDS: ALPHAGAN P 0.1% EYE DROPS 1 DROP BOTH EYES (11:41)
[2023-12-16] MEDS: VITAMIN D3 (cholecalciferol) 25 MCG PO (11:41)
[2023-12-16] MEDS: PEPCID 20 MG PO (11:41)
[2023-12-16] MEDS: OSCAL CAL 500 500 MG PO (11:41)
[2023-12-16] MEDS: COSOPT EYE DROPS 1 DROP BOTH EYES (11:42)
[2023-12-16] MEDS: FLUSH (NSS) 2 FLUSH IV (11:43)
[2023-12-16] MEDS: LASIX 20 MG IV (11:43)
[2023-12-16] MEDS: NORVASC 2.5 MG PO (13:37)
--- NOTE | 2023-12-16 13:57 | W.DS.TRANS ---
Addendum entered and electronically signed by Melissa Das PA-C 12/16/23 16:56:
dictation # [id number]
Original Note:
DC Summary - Chief Communications Officer
-
Discharge Instructions:
Discharge Diagnosis/Procedures chest discomfort, cardiac catheterization
Diet Low Cholesterol
Activity As tolerated
Driving Restrictions No driving for 24 hours
Bathing Restrictions None
Instructions:
Stand-Alone Forms: DC Instructions- Cath/EP Lab
Changes to Home Medications: Yes
Discharge Medications:
DC Medications w/original date entered in [facility]
apixaban 5 mg tablet (Eliquis) 5 mg PO BID Blood Clot Prevent/AFib 02/01/19
atorvastatin 20 mg tablet 20 mg PO QPM High Cholesterol 02/01/19
biotin 1,000 mcg chewable tablet 5,000 mcg PO DAILY Supplement 02/01/19
cholecalciferol (vitamin D3) 25 mcg (1,000 unit) tablet 1,000 units PO DAILY Supplement 02/01/19
coenzyme A87-ntzqcsy E 100 mg-5 unit capsule (Co Q-10 (with Vit E)) 1 ea PO DAILY Supplement 02/01/19
cranberry 1 cap PO DAILY Supplement 11/30/23
escitalopram oxalate 10 mg tablet 10 mg PO HS depression/anxiety 12/13/23
famotidine 20 mg tablet (Pepcid) 20 mg PO DAILY Gastrointestinal Issue 12/13/23
bimatoprost 0.01 % eye drops (Lumigan) 1 drp BOTH EYES HS Eye Condition 12/15/23
brimonidine 0.1 % eye drops 1 drp BOTH EYES BID Eye Condition 12/15/23
calcium carbonate (Calcium 600) 600 mg PO BID Supplement 12/15/23
dorzolamide 22.3 mg-timolol 6.8 mg/mL eye drops 1 drp BOTH EYES BID Eye Condition 12/15/23
metoprolol succinate 25 mg tablet,extended release 24 hr 25 mg PO BID Heart Disease/Condition 12/15/23
omega-3s 300 gc-ipy-lmi-other lxaiq9q-kmmp oil 1,000 mg capsule ([place]-3 Fish Oil) 1 cap PO DAILY Supplement 12/15/23
amlodipine 2.5 mg tablet (Norvasc) 2.5 mg PO DAILY #30 tabs 12/16/23
furosemide 20 mg tablet (Lasix) 20 mg PO DAILY #2 tabs 12/16/23
Home Medication Changes
norvasc is new
lasix 20mg po x2 days
Pending Results: No
[2023-12-16] MEDS: ELIQUIS 5 MG PO (14:24)
--- NOTE | 2023-12-16 17:02 | PTCARENOTE ---
Pt's IV line & property assessment monitor D/C'd. D/C instructions discussed w/pt & spouse. 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 Pt taken out via WC w/spouse driving pt home.
== END 2023-12-16 17:03 | disposition home or self-care (01) | DRG 287 ==
LOC: IVU 08:00
PROVIDERS: Physician Assistant; ADMITTING PHYSICIAN Internal Medicine Interventional Cardiology; EMERGENCY PHYSICIAN Emergency Medicine; FAMILY PHYSICIAN Family Medicine
PROC: 4A023N7 Measurement of Cardiac Sampling and Pressure, Left Heart, Percutaneous Approach (ICD-10-PCS; 2023-12-16)
PROC: B2111ZZ Fluoroscopy of Multiple Coronary Arteries using Low Osmolar Contrast (ICD-10-PCS; 2023-12-16)
DX: R07.2 Precordial pain (principal); I48.4 Atypical atrial flutter; I5A Non-ischemic myocardial injury (non-traumatic); I27.20 Pulmonary hypertension, unspecified; F32.A Depression, unspecified; I07.1 Rheumatic tricuspid insufficiency; I10 Essential (primary) hypertension; D72.829 Elevated white blood cell count, unspecified; E78.00 Pure hypercholesterolemia, unspecified; F41.9 Anxiety disorder, unspecified; G47.33 Obstructive sleep apnea (adult) (pediatric); I48.0 Paroxysmal atrial fibrillation; R79.89 Other specified abnormal findings of blood chemistry; Z79.01 Long term (current) use of anticoagulants; Z79.899 Other long term (current) drug therapy; Z88.0 Allergy status to penicillin; Z88.3 Allergy status to other anti-infective agents
CPT/HCPCS: 71046; 80053; 80061; 83036; 83735; 83880; 84484; 85025; 85027; 85347; 85730; 93005; 93306; 93458; 99152; 99153; 99285; C1894; Q9967